=== PATIENT | female | born 1990 | race African-American/Black ===

== ENCOUNTER 2016-10-27 06:42 | Emergency (ER) | payer SELFPAY ==
[~2016-10-27] VITALS: Ht 170.2 cm; Wt 80.0 kg
[2016-10-27 06:44] VITALS: BP 116/74; PULSE 73; RESP 15; TEMP 97.7; O2SAT 98
--- NOTE | 2016-10-27 07:27 | PD ---
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 Patient states pelvic pain is been going on and off for the past 4 months but the nausea and vomiting just started last night which caused her to come in and be seen. She is initially seen in [place] and told she needed follow-up with an [employer]NER but recently moved here 6 hasn't had chance to do so. Denies any fever denies any vaginal bleeding denies chance of . Denies diarrhea. States the only thing she vomited his food and it was only twice. PFSH Past Medical History Medical History: Denies Significant Hx ?: Not LMP: "MONTHS" Past Surgical History Surgical History: No Previous Surgery Family History Narrative Family History Noncontributory Social History Alcohol Use: Yes Tobacco Use: No Allergies-Medications (Allergen,Severity, Reaction): Coded Allergies: No Known Allergies (Unverified , 10/27/16) Reported Meds & Prescriptions Reported Meds & Active Scripts Active Flagyl (Metronidazole) 500 Mg Tab 500 Mg PO BID 7 Days Review of Systems Except as stated in HPI: all other systems reviewed are Neg Physical Exam Narrative GENERAL: Well-developed well-nourished no apparent distress sitting upright in a stretcher textile phone. SKIN: Warm and dry. HEAD: Atraumatic. Normocephalic. EYES: Pupils equal and round. No scleral icterus. No injection or drainage. ENT: No nasal bleeding or discharge. Mucous membranes pink and moist. NECK: Trachea midline. No JVD. CARDIOVASCULAR: Regular rate and rhythm. No murmur appreciated. RESPIRATORY: No accessory muscle use. Clear to auscultation. Breath sounds equal bilaterally. GASTROINTESTINAL: Abdomen soft, non-tender, nondistended. Hepatic and splenic margins not palpable. No rebound no percussive tenderness, so some router operator radial sign is negative, Genitourinary: Exam performed with female nurse application project leader in the room at all times, grossly normal external female genitalia, there is no Q wave discharge throughout the vagina, no cervical motion tenderness, cervix is normal, no bimanual tenderness. MUSCULOSKELETAL: No obvious deformities. No clubbing. No cyanosis. No edema. NEUROLOGICAL: Awake and alert. No obvious cranial nerve deficits. Motor grossly within normal limits. Normal speech. PSYCHIATRIC: Appropriate mood and affect; insight and judgment normal. Data Data Last Documented VS Vital Signs Date Time Temp Pulse Resp B/P Pulse Ox O2 Delivery O2 Flow Rate FiO2 10/27/16 07:42 71 18 115/66 100 Room Air 10/27/16 06:44 97.7 Orders Urinalysis - C+S If Indicated (10/27/16 07:14) Ed Urine Pregnancytest Poc (10/27/16 07:14) Complete Blood Count With Diff (10/27/16 07:23) Comprehensive Metabolic Panel (10/27/16 07:23) Lipase (10/27/16 07:23) Iv Access Insert/Monitor (10/27/16 07:23) Ecg Monitoring (10/27/16 07:23) Oximetry (10/27/16 07:23) Ondansetron Inj (Zofran Inj) (10/27/16 07:30) Sodium Chloride 0.9% Flush (Ns Flush) (10/27/16 07:30) Ketorolac Inj (Toradol Inj) (10/27/16 07:30) Wet Prep Profile (10/27/16 07:23) Gc And Chlamydia Pcr (10/27/16 07:23) Ketorolac Inj (Toradol Inj) (10/27/16 08:15) Ondansetron Inj (Zofran Inj) (10/27/16 08:15) Ondansetron Odt (Zofran Odt) (10/27/16 08:45) Ibuprofen (Motrin) (10/27/16 08:45) Labs Laboratory Tests Test 10/27/16 10/27/16 07:47 10:15 White Blood Count 9.5 TH/MM3 Red Blood Count 5.22 MIL/MM3 Hemoglobin 12.2 GM/DL Hematocrit 39.0 % Mean Corpuscular Volume 74.8 FL Mean Corpuscular Hemoglobin 23.3 PG Mean Corpuscular Hemoglobin 31.2 % Concent Red Cell Distribution Width 19.3 % Platelet Count 274 TH/MM3 Mean Platelet Volume 10.2 FL Neutrophils (%) (Auto) 52.9 % Lymphocytes (%) (Auto) 31.6 % Monocytes (%) (Auto) 13.4 % Eosinophils (%) (Auto) 1.3 % Basophils (%) (Auto) 0.8 % Neutrophils # (Auto) 5.0 TH/MM3 Lymphocytes # (Auto) 3.0 TH/MM3 Monocytes # (Auto) 1.3 TH/MM3 Eosinophils # (Auto) 0.1 TH/MM3 Basophils # (Auto) 0.1 TH/MM3 CBC Comment AUTO DIFF Differential Comment AUTO DIFF CONFIRMED Platelet Estimate NORMAL Platelet Morphology Comment ENLARGED Keratocytes OCC Urine Color YELLOW Urine Turbidity HAZY Urine pH 6.0 Urine Specific [place] 1.023 Urine Protein NEG mg/dL Urine Glucose (UA) NEG mg/dL Urine Ketones NEG mg/dL Urine Occult Blood NEG Urine Nitrite NEG Urine Bilirubin NEG Urine Urobilinogen LESS THAN 2.0 MG/DL Urine Leukocyte Esterase SMALL Urine RBC 1 /hpf Urine WBC 4 /hpf Urine Squamous Epithelial 10 /hpf Cells Urine Bacteria FEW /hpf Urine Mucus FEW /lpf Microscopic Urinalysis Comment CULT NOT INDICATED Sodium Level 140 MEQ/L Potassium Level 5.0 MEQ/L Chloride Level 106 MEQ/L Carbon Dioxide Level 27.4 MEQ/L Anion Gap 7 MEQ/L Blood Urea Nitrogen 10 MG/DL Creatinine 0.73 MG/DL Estimat Glomerular Filtration 119 ML/MIN Rate Random Glucose 109 MG/DL Calcium Level 8.5 MG/DL Total Bilirubin 0.5 MG/DL Aspartate Amino Transf 45 U/L (AST/SGOT) Alanine Aminotransferase 26 U/L (ALT/SGPT) Alkaline Phosphatase 108 U/L Total Protein 7.8 GM/DL Albumin 3.5 GM/DL Lipase 90 U/L Chlamydia trachomatis DNA NOT DETECTED (PCR) Neisseria gonorrhoeae DNA NOT DETECTED (PCR) Clue Cells (Wet Prep) NONE SEEN Vaginal Trichomonas (Wet Prep) NONE SEEN Vaginal Yeast (Wet Prep) NONE SEEN MDM Medical Decision Making Medical Screen Exam Complete: Yes Emergency Medical Condition: Yes Differential Diagnosis Electro-vaginosis, pelvic pain, , ovarian torsion highly unlikely, appendicitis highly unlikely. Narrative Course Patient 26-year-old female presents emergency department for pelvic pain as well as one episode of nausea. She is well-appearing and in no obvious distress. Physical exam did show some white discharge consistent with bacterial vaginosis. Wet prep unfortunately did not confirm. We'll treat based on physical exam findings. 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 Given physical exam findings and no adnexal tenderness likelihood for ovarian torsion is highly unlikely. Likewise her abdomen is soft and nontender and has a very low likelihood for appendicitis. Her CBC is within normal limits, CMP within normal limits lipase negative, UA negative. No indication for further workup in the emergency department at this time. Diagnosis Primary Impression: Pelvic pain Additional Impression: Bacterial vaginosis Referrals: Lea Coley MD Med/Other Pt SpecificInfo: Prescription(s) given Scripts Metronidazole (Flagyl)500 Mg [id number] Mg PO BID 7 Days Ref 0 Prov:Ulices Jensen MD 10/27/16 Disposition: 01 DISCHARGE HOME Condition: Stable Ulices Jensen MD Oct 27, 2016 07:26
[2016-10-27] MEDS ORDERED: ONDANSETRON HCL 4 MG/2 ML VIAL IVP ONE (07:30)
[2016-10-27] MEDS ORDERED: SODIUM CHLORIDE 0.9% FLUSH 5 ML FLUSH IVF PRN (07:30)
[2016-10-27] MEDS ORDERED: KETOROLAC TROMETHAMINE 30 MG/ML (IVP) VIAL IVP ONE (07:30)
[2016-10-27 07:35] VITALS: RESP 18; O2SAT 100
[2016-10-27 07:42] VITALS: BP 115/66; PULSE 71; RESP 18; O2SAT 100
[2016-10-27 08:03] LABS: BASOPHIL # 0.1 TH/MM3 (0-0.2); BASOPHIL % 0.8 % (0.0-2.0); EOSINOPHIL # 0.1 TH/MM3 (0-0.4); EOSINOPHIL % 1.3 % (0.0-4.0); LYMPH % 31.6 % (9.0-44.0); MEAN CELL VOLUME 74.8 FL (80.0-100.0); MEAN CORPUSCULAR HEMOGLOBIN 23.3 PG (27.0-34.0); MEAN CORPUSCULAR HGB CONC 31.2 % (32.0-36.0); MONO % 13.4 % (0.0-8.0); NEUT % 52.9 % (16.0-70.0); PLATELET COUNT 274 TH/MM3 (150-450); RED BLOOD COUNT 5.22 MIL/MM3 (4.00-5.30); RED CELL DISTRIBUTION WIDTH 19.3 % (11.6-17.2); WHITE BLOOD COUNT 9.5 TH/MM3 (4.0-11.0)
[2016-10-27 08:04] LABS: HEMO FLAGS AUTO DIFF
[2016-10-27 08:11] LABS: BACTERIA, URINE FEW /hpf; BLOOD, URINE NEG (NEG); COMMENT (UR) CULT NOT INDICATED; CULTURE IF INDICATED CULT NOT INDICATED; GLUCOSE,URINE NEG (NEG); KETONE, URINE NEG (NEG); MUCUS URINE FEW /lpf (OCC); NITRITE,URINE NEG (NEG); SQUAMOUS EPITHELIAL CELL URINE 10 /hpf (0-5); URINE COLOR YELLOW (YELLW/STRAW)
[2016-10-27] MEDS ORDERED: ONDANSETRON HCL 4 MG/2 ML VIAL IM ONE (08:15)
[2016-10-27] MEDS ORDERED: KETOROLAC TROMETHAMINE 60 MG/2 ML (IM) VIAL IM ONE (08:15)
[2016-10-27 08:19] LABS: ALKALINE PHOSPHATASE 108 U/L (45-117); TOTAL BILIRUBIN ADULT 0.5 MG/DL (0.2-1.0)
[2016-10-27 08:24] LABS: ALT (GPT) 26 U/L (10-53); ANION GAP 7 MEQ/L (5-15); AST (GOT) 45 U/L (15-37); BICARBONATE 27.4 MEQ/L (21.0-32.0); BLOOD UREA NITROGEN 10 MG/DL (7-18); CHLORIDE 106 MEQ/L (98-107); GLOMERULAR FILTRATION RATE 119 ML/MIN (>89); SODIUM (NA) 140 MEQ/L (136-145)
[2016-10-27 08:40] LABS: KERATOCYTES OCC (NORMAL); PLATELET ESTIMATE SMEAR NORMAL (NORMAL); PLATELET MORPHOLOGY ENLARGED (NORMAL); SCAN/DIFF AUTO DIFF CONFIRMED
[2016-10-27] MEDS ORDERED: ONDANSETRON ODT 4 MG TAB PO ONE (08:45)
[2016-10-27] MEDS ORDERED: IBUPROFEN 600 MG TAB PO ONE (08:45)
[2016-10-27] MEDS ORDERED: METR-1 PO (10:25)
[2016-10-27 11:20] LABS: CHLAMYDIA PCR NOT DETECTED (NOT DETECT); NEISSERIA PCR NOT DETECTED (NOT DETECT)
== END 2016-10-27 10:45 | disposition home or self-care (01) ==
LOC: NEPC 06:42
DX: N76.0 Acute vaginitis (principal); R10.2 Pelvic and perineal pain
CPT/HCPCS: 80053; 81001; 83690; 84703; 85025; 87210; 87491; 87591; 99284

== ENCOUNTER 2016-12-11 12:42 | Emergency (ER) | payer SELFPAY ==
[~2016-12-11] VITALS: Ht 167.6 cm; Wt 71.0 kg
[~2016-12-11 12:42] MED LIST: METR-1 PO
[2016-12-11 12:44] VITALS: BP 126/76; PULSE 65; RESP 16; TEMP 97.8; O2SAT 100
--- NOTE | 2016-12-11 12:54 | PD ---
Physical Exam Time Seen by Provider: 12:51 Narrative 26 y/o female here with SOB, chest discomfort, heaviness starting today after running in the rain. She had this issue in the past and she was provided an albuterol inhalor which seemed to help. No dx hx of asthma. VSS Seen at triage desk. Awaiting bed placement. Data Data Last Documented VS Vital Signs Date Time Temp Pulse Resp B/P Pulse Ox O2 Delivery O2 Flow Rate FiO2 12/11/16 12:44 97.8 65 16 126/76 100 MDM Medical Record Reviewed: Yes Supervised Visit with CARLINE: Jeff Chao December 11, 2016 12:54
[2016-12-11] MEDS ORDERED: VENTAER INH (13:02)
--- NOTE | 2016-12-11 13:03 | PD ---
HPI Chief Complaint: Respiratory Symptoms Time Seen by Provider: 12:59 Travel History International Travel<30 days: No Contact w/Intl Traveler<30days: No Traveled to known affect area: No History of Present Illness HPI 26-year-old female with history of asthma/bronchitis here with complaint of shortness of breath. Patient states that she was running out of the rain to get into her work. Shortly after she developed wheezing, tightness in her chest similar to her asthma flares in the past. She however recently moved from [place] and does not have a local primary care nor her albuterol inhaler. Patient presents to the ER today requesting same. She is already feeling improved. PFSH Past Medical History Asthma: Yes Diabetes: Yes (possible pre diabetic) ?: Not Social History Alcohol Use: Yes Tobacco Use: No Substance Use: No Allergies-Medications (Allergen,Severity, Reaction): Coded Allergies: No Known Allergies (Unverified , 12/11/16) Reported Meds & Prescriptions Reported Meds & Active Scripts Active Ventolin Hfa 18 GM Inh (Albuterol Sulfate) 90 Mcg/Act Aer 2 Puff INH Q4H PRN Review of Systems Except as stated in HPI: all other systems reviewed are Neg Physical Exam Narrative GENERAL: Well Appearing female in no acute distress SKIN: Focused skin assessment warm/dry. HEAD: Normocephalic. EYES: No scleral icterus. No injection or drainage. ENT: Mucous membranes pink and moist. NECK: Supple CARDIOVASCULAR: Regular rate and rhythm. RESPIRATORY: No accessory muscle use. Clear to auscultation. Breath sounds equal bilaterally. MUSCULOSKELETAL: Normal gait NEUROLOGICAL: Awake and alert. Normal speech. PSYCHIATRIC: Appropriate mood and affect; insight and judgment normal. Data Data Last Documented VS Vital Signs Date Time Temp Pulse Resp B/P Pulse Ox O2 Delivery O2 Flow Rate FiO2 12/11/16 12:44 97.8 65 16 126/76 100 MDM Medical Decision Making Medical Screen Exam Complete: Yes Emergency Medical Condition: Yes Medical Record Reviewed: Yes Differential Diagnosis 26-year-old female with history of asthma/bronchitis here with shortness of breath after running outside, symptoms now essentially resolved. Consistent with mild intermittent asthma, no significant flare, lungs are clear this time and her symptoms have resolved. Patient will be discharged home with albuterol MDI to use when necessary and outpatient PCP referral. Narrative Course See above Diagnosis Primary Impression: Asthma Qualified Code: J45.20 - Mild intermittent asthma without complication Referrals: [facility] call for appointment Departure Forms: Tests/Procedures, Work Release Enter return to work date: December 11, 2016 Additional Instructions: Albuterol as needed for shortness of breath, wheezing. Follow up with local primary care to establish care. Med/Other Pt SpecificInfo: Prescription(s) given Scripts Albuterol 18 GM Inh (Ventolin Hfa 18 GM Inh)90 Mcg/Act Aer2 Puff INH Q4H PRN ( SHORTNESS OF BREATH) #1 INHALER Ref 0 Prov:Lynda Reyes MD 12/11/16 Disposition: 01 DISCHARGE HOME Condition: Stable Lynda Reyes MD December 11, 2016 13:02
== END 2016-12-11 13:14 | disposition home or self-care (01) ==
LOC: NEPD 12:42
DX: J45.20 Mild intermittent asthma, uncomplicated (principal); R73.03 Prediabetes; Z87.09 Personal history of other diseases of the respiratory system
CPT/HCPCS: 99284

== ENCOUNTER 2017-01-08 11:17 | Emergency (ER) | payer SELFPAY ==
[~2017-01-08] VITALS: Ht 170.2 cm; Wt 80.0 kg
[~2017-01-08 11:17] MED LIST changes: -METR-1 PO; +VENTAER INH
[2017-01-08 11:18] VITALS: BP 122/74; PULSE 70; RESP 14; TEMP 98.2; O2SAT 99
--- NOTE | 2017-01-08 11:24 | PD ---
Physical Exam Date Seen by Provider: January 08, 2017 Time Seen by Provider: 11:22 Narrative 26 yo female here for evaluation of chest pain, congestion and cough. Per patient chest pain feels like pressure on the chest. Has had some nausea. Congestion and cough not as bad anymore. History of asthma. Per patient this feels different from her usual asthma. Pain is 7/10 and is present all the time. Vitals sign stable. Patient awaiting bed placement. Data Data Last Documented VS Vital Signs Date Time Temp Pulse Resp B/P Pulse Ox O2 Delivery O2 Flow Rate FiO2 01/08/17 11:18 98.2 70 14 122/74 99 MDM Medical Record Reviewed: Yes Supervised Visit with CARLINE: No Chester Mendez January 08, 2017 11:24
--- NOTE | 2017-01-08 11:48 | PD ---
HPI Chief Complaint: Chest Pain Time Seen by Provider: 11:42 Travel History International Travel<30 days: No Contact w/Intl Traveler<30days: No Traveled to known affect area: No History of Present Illness HPI 26-year-old female with a history of asthma presents to the emergency department for evaluation of chest pain. Patient states that this morning while at work she began to develop anterior chest pain that she describes as a pressure. States that she does have some associated lightheadedness and nausea. Aggravated with movement of shoulders and arms and with palpation. Denies any alleviating factors. 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 Denies any shortness of breath, difficulty breathing, fever, chills, vomiting, diarrhea, abdominal pain. She does state that about 3 days ago she had nasal congestion, runny nose and a slight cough. States that those symptoms have been improving over the last several days. Denies any recent travel or sick contacts. Denies any history of blood clots or heart disease. Denies any family history of heart disease or sudden cardiac . No other complaints. Denies , last menstrual period 3 weeks ago. PFSH Past Medical History Asthma: Yes Diabetes: Yes (possible pre diabetic) Respiratory: Yes (ASTHMA) ?: Not Social History Alcohol Use: No Tobacco Use: No Substance Use: No Allergies-Medications (Allergen,Severity, Reaction): Coded Allergies: No Known Allergies (Unverified , 01/08/17) Reported Meds & Prescriptions Reported Meds & Active Scripts Active Ventolin Hfa 18 GM Inh (Albuterol Sulfate) 90 Mcg/Act Aer 2 Puff INH Q4H PRN Review of Systems Except as stated in HPI: all other systems reviewed are Neg Physical Exam Narrative GENERAL: Well-nourished and well-developed pleasant female patient in no acute distress who is nontoxic appearing. SKIN: Warm and dry. HEAD: Normocephalic and atraumatic. EYES: No injection, drainage, or hyphema noted. PERRLA. EOMI. ENT: No nasal drainage noted. Oropharynx is clear. NECK: Supple and the trachea is midline. CARDIOVASCULAR: Regular rate and rhythm. RESPIRATORY: Breath sounds are equal bilaterally with no accessory muscle use, wheezing, rhonchi, or crackles. Some tenderness to palpation along the sternum. GASTROINTESTINAL: Abdomen is soft, non-tender, and nondistended. MUSCULOSKELETAL: No obvious deformities, swelling, cyanosis, or ecchymosis is present throughout the upper and lower extremities. Patient has full range of motion without any signs of neurovascular compromise. NEUROLOGICAL: Awake, alert, and oriented. Normal speech and gait. Cranial nerves are grossly intact. Data Data Last Documented VS Vital Signs Date Time Temp Pulse Resp B/P Pulse Ox O2 Delivery O2 Flow Rate FiO2 01/08/17 11:37 Room Air 01/08/17 11:18 98.2 70 14 122/74 99 Orders Chest, Pa & Lat (01/08/17 11:37) Ed Urine Pregnancytest Poc (01/08/17 11:37) MDM Medical Decision Making Medical Screen Exam Complete: Yes Emergency Medical Condition: Yes Differential Diagnosis Costochondritis versus pneumonia versus pleurisy versus anxiety versus atypical chest pain Narrative Course 26-year-old female presents to the emergency department for evaluation of chest pain that began this morning while at work. Patient is afebrile, vital signs are stable. Physical examination is essentially unremarkable with the exception of some tenderness to palpation along the sternum. EKG shows normal sinus rhythm with no acute ST elevations or depressions. Patient is PERC negative. I do not suspect this is cardiac in etiology nor do I suspect a PE. Likely an element of musculoskeletal or costochondritis. Chest x-ray is negative for any acute abnormalities. ED urine test is negative. Patient will be discharged home with NSAIDs. Advised follow-up with her PCP. Patient verbalizes understanding and agreement with treatment plan. I discussed the case with my attending physician Dr. Reyes who is aware of the patients history, physical examination findings, and treatment plan. Diagnosis Primary Impression: Chest wall pain Referrals: Primary Care Physician Patient Instructions: General Instructions Additional Instructions: Take medication as prescribed with food and a full glass of water. Follow-up with your Primary Care Physician. Return to the ED for any acute worsening of symptoms. Med/Other Pt SpecificInfo: Prescription(s) given Scripts Naproxen 500 Mg [id number] Mg PO BID 7 Days Ref 0 Prov:Lynda Reyes MD 01/08/17 Disposition: 01 DISCHARGE HOME Condition: Stable Rebecca Mares January 08, 2017 11:48
--- NOTE | 2017-01-08 12:10 | RADRPT ---
EXAM DATE/TIME: 01/08/2017 11:53 [facility] COMPARISON: No previous studies available for comparison. INDICATIONS : Chest pain MEDICAL HISTORY : Asthma. SURGICAL HISTORY : None. ENCOUNTER: Initial ACUITY: 1 day PAIN SCORE: 0/10 LOCATION: Bilateral chest FINDINGS: PA and lateral views of the chest demonstrate the lungs to be symmetrically aerated without evidence of mass, infiltrate or effusion. The cardiomediastinal contours are unremarkable. Osseous structure s are intact. CONCLUSION: Normal examination. Vel Otto MD on January 08, 2017 at 12:08 Board Certified Radiologist. This report was verified electronically.
[2017-01-08] MEDS ORDERED: NAPR500T PO (12:14)
[2017-01-08] MEDS ORDERED: ALBU0.08 NEB (12:16)
--- NOTE | 2017-01-09 09:43 | EKG ---
Date Performed: 01/08/2017 Time Performed: 11:34:14 PTAGE: 26 years EKG: Sinus rhythm NORMAL ECG NO PREVIOUS TRACING DOCTOR: Yannick Hatfield Interpretating Date/Time 01/09/2017 09:41:54
== END 2017-01-08 12:35 | disposition home or self-care (01) ==
LOC: NEPD 11:17
DX: R07.89 Other chest pain (principal); J45.909 Unspecified asthma, uncomplicated
CPT/HCPCS: 71020; 84703; 93005; 99283

== ENCOUNTER 2017-01-10 23:42 | Emergency (ER) | payer SELFPAY ==
[~2017-01-10] VITALS: Ht 170.2 cm; Wt 80.0 kg
[~2017-01-10 23:42] MED LIST changes: +ALBU0.08 NEB; +NAPR500T PO
[2017-01-10 23:44] VITALS: BP 138/80; PULSE 72; RESP 16; TEMP 97.8; O2SAT 100
[2017-01-11 02:59] LABS: BACTERIA, URINE RARE /hpf; BLOOD, URINE NEG (NEG); COMMENT (UR) CULTURE INDICATED; CULTURE IF INDICATED CULTURE INDICATED; GLUCOSE,URINE NEG (NEG); KETONE, URINE NEG (NEG); MUCUS URINE FEW /lpf (OCC); NITRITE,URINE NEG (NEG); SQUAMOUS EPITHELIAL CELL URINE 17 /hpf (0-5); URINE COLOR YELLOW (YELLW/STRAW)
[2017-01-11] MEDS ORDERED: LIDOCAINE HCL 1% 50 ML VIAL XX ONE (03:00)
[2017-01-11] MEDS ORDERED: cefTRIAXone 250 MG VIAL IM ONE (03:00)
[2017-01-11] MEDS ORDERED: DOXY100C PO (03:25)
[2017-01-11] MEDS ORDERED: FAMC500T PO (03:25)
[2017-01-11] MEDS ORDERED: IBUP800T23 PO (03:25)
[2017-01-11] MEDS ORDERED: NORC5TAB PO (03:25)
[2017-01-11] MEDS ORDERED: METR-1 PO (03:25)
--- NOTE | 2017-01-11 03:26 | PD ---
HPI . Vaginal pain Chief Complaint: Complaint Time Seen by Provider: 01:15 Travel History International Travel<30 days: No Contact w/Intl Traveler<30days: No Traveled to known affect area: No History of Present Illness HPI Patient presents complaining with a three-day history of vaginal pain and swelling. She also reports a discharge. Symptoms are exacerbated by urination. No relieving factors. PFSH Past Medical History Asthma: Yes Diabetes: Yes (possible pre diabetic) Diminished Hearing: No Respiratory: Yes (ASTHMA) Tetanus Vaccination: > 5 Years Influenza Vaccination: No ?: Not LMP: 12/14/2016 : 0 Past Surgical History Other Surgery: Yes (cyst on vagina I&D surgery) Social History Alcohol Use: No Tobacco Use: No Substance Use: No Allergies-Medications (Allergen,Severity, Reaction): Coded Allergies: No Known Allergies (Unverified , 01/08/17) Reported Meds & Prescriptions Reported Meds & Active Scripts Active Albuterol Neb (Albuterol Sulfate) 2.5 Mg/3 Ml Neb 2.5 Mg NEB Q4HR NEB PRN Ventolin Hfa 18 GM Inh (Albuterol Sulfate) 90 Mcg/Act Aer 2 Puff INH Q4H PRN Review of Systems Except as stated in HPI: all other systems reviewed are Neg General / Constitutional: No: Fever, Chills Gastrointestinal: No: Nausea, Vomiting, Diarrhea, Abdominal Pain Genitourinary: Positive: Discharge, Other (vaginal pain), No: Pelvic Pain Physical Exam Narrative GENERAL: Awake and alert and in no acute distress. SKIN: Warm and dry. HEAD: Atraumatic. Normocephalic. EYES: Pupils equal and round. NECK: Trachea midline. CARDIOVASCULAR: Regular rate and rhythm. RESPIRATORY: No accessory muscle use. : Vesicular lesions scattered around the external genitalia and vaginal introitus. Speculum exam was impossible secondary to pain. Bimanual exam showed no cervical motion tenderness or adnexal tenderness. MUSCULOSKELETAL: No obvious deformities. No edema. NEUROLOGICAL: Awake and alert. No obvious cranial nerve deficits. Motor grossly within normal limits. Normal speech. PSYCHIATRIC: Appropriate mood and affect; insight and judgment normal. Data Data Last Documented VS Vital Signs Date Time Temp Pulse Resp B/P Pulse Ox O2 Delivery O2 Flow Rate FiO2 01/10/17 23:44 97.8 72 16 138/80 100 Room Air Orders Urinalysis - C+S If Indicated (01/11/17 01:15) Ed Urine Pregnancytest Poc (01/11/17 01:15) Gc And Chlamydia Pcr (01/11/17 01:46) Wet Prep Profile (01/11/17 01:46) Herpes Simplex Virus Culture (01/11/17 02:56) Ceftriaxone Inj (Rocephin Inj) (01/11/17 03:00) Lidocaine 1% Inj (50 Ml) (Xylocaine 1% I (01/11/17 03:00) Urine Culture (01/11/17 01:25) Labs Laboratory Tests Test 01/11/17 01/11/17 01:25 02:57 Urine Color YELLOW Urine Turbidity HAZY Urine pH 6.0 Urine Specific [place] 1.022 Urine Protein TRACE mg/dL Urine Glucose (UA) NEG mg/dL Urine Ketones NEG mg/dL Urine Occult Blood NEG Urine Nitrite NEG Urine Bilirubin NEG Urine Urobilinogen LESS THAN 2.0 MG/DL Urine Leukocyte Esterase MOD Urine RBC 6 /hpf Urine WBC 14 /hpf Urine Squamous Epithelial 17 /hpf Cells Urine Bacteria RARE /hpf Urine Mucus FEW /lpf Microscopic Urinalysis Comment CULTURE INDICATED Clue Cells (Wet Prep) PRESENT Vaginal Trichomonas (Wet Prep) NONE SEEN Vaginal Yeast (Wet Prep) NONE SEEN MDM Medical Decision Making Medical Screen Exam Complete: Yes Emergency Medical Condition: Yes Differential Diagnosis Final differential diagnosis of urinary symptoms includes but is not limited to UTI, kidney stone, pyelonephritis, bacterial vaginosis, yeast infection, urinary retention Narrative Course Patient presents complaining with vaginal pain and swelling associated with painful urination. She has herpes by physical exam. I will treat her for other STDs as well. UA shows moderate leukocyte esterase, negative nitrate, rare bacteria and 14 white blood cells. Wet prep shows clue cells. Diagnosis Primary Impression: Herpes genitalia Qualified Code: A60.04 - Herpes simplex vulvovaginitis Additional Impression: Bacterial vaginosis Patient Instructions: General Instructions, Genital Herpes Simplex (DC) Med/Other Pt SpecificInfo: Prescription(s) given Scripts Hydrocodone-Acetaminophen ([place])5-325 mg Tab1 Tab PO Q4H PRN (PAIN) #12 TAB Ref 0 Prov:Ally Sykes MD 01/11/17 Ibuprofen 800 Mg [id number] Mg PO Q8H PRN (Pain/Inflammation) #60 TAB Ref 0 Prov:Ally Sykes MD 01/11/17 Metronidazole (Flagyl)500 Mg [id number] Mg PO BID 7 Days Ref 0 Prov:Ally Sykes MD 01/11/17 Doxycycline Hyclate 100 Mg [id number] Mg PO BID #20 CAP Ref 0 Prov:Ally Sykes MD 01/11/17 Famciclovir 500 Mg [id number] Mg PO TID 7 Days Ref 0 Prov:Ally Sykes MD 01/11/17 Disposition: 01 DISCHARGE HOME Condition: Stable Ally Sykes MD Jan 11, 2017 03:26
[2017-01-11] MEDS ORDERED: oxyCODONE/ACETAMINOPHEN 5 MG/325 MG TAB PO ONE (03:30)
[2017-01-11 03:56] VITALS: BP 136/79; PULSE 74; RESP 18; O2SAT 96
[2017-01-11 07:33] LABS: CHLAMYDIA PCR NOT DETECTED (NOT DETECT); NEISSERIA PCR NOT DETECTED (NOT DETECT)
== END 2017-01-11 03:55 | disposition home or self-care (01) ==
LOC: NEPE 23:42
DX: A60.04 Herpesviral vulvovaginitis (principal); N76.0 Acute vaginitis; R30.0 Dysuria; Z87.09 Personal history of other diseases of the respiratory system
CPT/HCPCS: 81001; 84703; 87086; 87210; 87255; 87491; 87591; 96372; 99284; J0696